=== PATIENT | male | born 1965 | race Two or more races ===

== ENCOUNTER 2021-05-11 08:01 | Emergency (ER) | payer BC, SELFPAY ==
[~2021-05-11] VITALS: Ht 165.1 cm; Wt 122.5 kg
[2021-05-11 08:52] VITALS: BP_SYST 166
[2021-05-11 13:34] LABS: BASOPHILS # (AUTO) 0.1 K/uL (0.0-0.2); BASOPHILS % (AUTO) 0.7 % (0.0-2.0); EOSINOPHILS # (AUTO) 0.2 K/uL (0.0-0.4); EOSINOPHILS % (AUTO) 2.7 % (0.0-4.0); HEMOGLOBIN 15.5 g/dL (14.0-18.0); LYMPHOCYTES # (AUTO) 1.8 K/uL (1.0-5.5); LYMPHOCYTES % (AUTO) 20.1 % (20.5-51.5); MEAN CORPUSCULAR HEMOGLOBIN 26 pg (27-31); MEAN CORPUSCULAR HGB CONC 32 % (32-36); MEAN CORPUSCULAR VOLUME 81 fL (79.0-98.0); MONOCYTES # (AUTO) 0.5 K/uL (0.0-1.0); MONOCYTES % (AUTO) 6.1 % (1.7-9.3); NEUTROPHILS # (AUTO) 6.4 K/uL (1.8-7.7); NEUTROPHILS % (AUTO) 70.4 % (40.0-70.0); PLATELET COUNT (AUTO) 234 K/uL (130-430); RED BLOOD CELL COUNT(AUTO) 5.91 MIL/uL (4.2-6.2); RED CELL DISTRIBUTION WIDTH 16.5 % (9.0-15.0); WHITE BLOOD COUNT (AUTO) 9.1 K/uL (4.8-10.8)
[2021-05-11 13:38] LABS: CALCIUM 8.7 mg/dL (8.4-11.0); CREATININE 0.81 mg/dL (0.55-1.30); POTASSIUM 3.4 mmol/L (3.5-5.1)
[2021-05-11 13:43] LABS: ALBUMIN 3.1 g/dL (3.4-4.8); TOTAL BILIRUBIN 1.2 mg/dL (0.0-1.0)
--- NOTE | 2021-05-11 14:20 | NUR ---
Dr Mckeon evaluating patient in the triage room
--- NOTE | 2021-05-11 14:30 | NUR ---
Patient triaged and placed in waiting room. VSS and patient appears in no acute distress at this time. Accompanied by SELF,RECEIVED MSE
--- NOTE | 2021-05-11 15:00 | NUR ---
PT C/O ABD PAIN X 2 WKS.
[2021-05-11 16:03] LABS: AMYLASE 36 U/L (0-100); LACTATE DEHYDROGENASE 229 U/L (85-227); LIPASE 49 U/L (73-393)
[2021-05-11 16:44] LABS: C-REACTIVE PROTEIN QUANT < 0.2 mg/dL (0-0.5)
[2021-05-11] MEDS ORDERED: IBUP-1971 PO (16:50)
[2021-05-11] MEDS ORDERED: DOCU-144 PO (16:50)
[2021-05-11] MEDS ORDERED: HYDR-3917 PO (16:50)
[2021-05-11 18:39] VITALS: BP_SYST 150
--- NOTE | 2021-05-11 18:39 | NUR ---
Patient given written and verbal discharge instructions and verbalizes understanding. ER MD discussed with patient the results and treatment provided. Patient in stable condition. ID arm band removed. Rx of COLACE,NORCO,MOTRIN given. Patient educated on pain management and to follow up with PMD. Pain Scale 2. Opportunity for questions provided and answered. Medication side effect fact sheet provided.
== END 2021-05-11 18:39 | disposition home or self-care (01) ==
LOC: SED 08:01
DX: R10.9 Unspecified abdominal pain (principal); I10 Essential (primary) hypertension; E11.9 Type 2 diabetes mellitus without complications; Z79.899 Other long term (current) drug therapy
CPT/HCPCS: 36415; 76376; 80053; 82150; 83605; 83615; 83690; 85025; 86140; 99284